=== PATIENT | female | born 1985 | race Caucasian/White ===

== ENCOUNTER 2018-12-21 12:11 | Inpatient (IN) | payer OTHER ==
[~2018-12-21] VITALS: Ht 157.5 cm; Wt 79.4 kg
[2018-12-21 12:00] VITALS: BP 98/58
--- NOTE | 2018-12-21 13:10 | NUR ---
33 year old FEMALE admitted to room # 405 for stabilization. Reports an addiction to last used hours prior to admission. Compliant with admission procedure. See assessment forms for additional information about patient status.
[2018-12-21] MEDS ORDERED: TRAZODONE100 MG PO (13:31)
[2018-12-21] MEDS ORDERED: ZANTAC 300300 MG PO (13:31)
[2018-12-21] MEDS ORDERED: METHADONE H5 MG/5 ML PO (13:32)
--- NOTE | 2018-12-21 14:38 | NUR ---
PATIENT MEETS [facility], CINA=16. PATIENT IS INTERESTED IN OUTPATIENT COUNSELING. [facility] WILL SCHEDULE THE PATIENT'S INITIAL APPOINTMENT. BRANT FONG MS SLICING MACHINE OPERATOR
[2018-12-21 15:49] LABS: BILIRUBIN NEGATIVE (NEGATIVE); BLOOD TRACE-INTACT (NEGATIVE); CLARITY CLEAR (CLEAR); COLOR YELLOW (YELLOW); GLUCOSE NEGATIVE (NEGATIVE); KETONE NEGATIVE (NEGATIVE); LEUKO ESTERASE NEGATIVE (NEGATIVE); NITRITE NEGATIVE (NEGATIVE); UROBILINOGEN 0.2 E.U./dl (0.2-1.0)
[2018-12-21 15:59] LABS: BACTERIA 1+; MUCOUS 1+; URINE AMPHETAMINES < 1000 (1000ng/ml); URINE BARBITURATES < 200 (200ng/ml); URINE BENZODIAZEPINES < 200 (200ng/ml); URINE CANNABINOIDS (THC) > 50 (50ng/ml); URINE COCAINE < 300 (300ng/ml); URINE METHADONE < 300 (300ng/ml); URINE OPIATES < 300 (300ng/ml); WBC 0-2 wbc/hpf (0-5)
[2018-12-21 16:00] VITALS: BP 91/51
[2018-12-21 16:04] LABS: BASO % 0.2 % (0.0-1.0); EOS % 0.4 % (1.0-4.0); HEMATOCRIT 37.4 % (37.0-47.0); HEMOGLOBIN 12.2 g/dl (12.0-16.0); LYMPH # 1.5 10*3/uL (1.3-4.4); LYMPH % 27.9 % (27.0-41.0); MEAN CELL VOLUME 88.8 fl (81.0-99.0); MEAN CORPUSCULAR HGB CONC 32.6 g/dl (33.0-37.0); MEAN PLATELET VOLUME 9.9 fl (9.6-12.3); MONO # 0.2 10*3/uL (0.1-1.0); MONO % 4.4 % (3.0-9.0); NEUT # 3.7 10*3/uL (2.3-7.9); NEUT % 66.9 % (47.0-73.0); PLATELET COUNT AUTOMATED 205 10*3/uL (130-400); RED BLOOD COUNT 4.21 10*6/uL (4.10-5.10); RED CELL DISTRI WIDTH 13.3 % (0-14.5); WHITE BLOOD COUNT 5.5 10*3/uL (4.8-10.8)
[2018-12-21 16:06] LABS: URINE PHENCYCLIDINE < 25 (25ng/ml)
[2018-12-21 16:22] LABS: INTERNATIONAL NORM RATIO 1.1 (2.0-3.5)
[2018-12-21 16:30] LABS: ALBUMIN 3.6 gm/dl (3.1-4.5); ALKALINE PHOSPHATASE 66 U/L (45-117); BUN 15 mg/dl (7-24); CHLORIDE 105 mmol/L (98-107); CREATININE 0.66 mg/dL (0.55-1.02); POTASSIUM 3.8 mmol/L (3.5-5.1); SGOT/AST 25 IU/L (3-35); SGPT/ALT 71 U/L (12-78); SODIUM 137 mmol/L (136-145); TOTAL PROTEIN 7.6 gm/dL (6.4-8.2)
[2018-12-21 16:31] LABS: ETHYL ALCOHOL < 3.0 mg/dl (<3)
[2018-12-21 16:34] LABS: BETA-HCG, QUANT < 1.0 mIU/mL (1-3)
--- NOTE | 2018-12-21 16:42 | NUR ---
PT REQUESTED AND GIVEN ROBAXIN FOR MUSCLE ACHES AND VISTARIL FOR ANXIETY WILL MONITOR
--- NOTE | 2018-12-21 18:11 | NUR ---
PT STATES THAT ROBAXIN AND VISTARIL HELPED WILL MONITOR
[2018-12-21 20:00] VITALS: BP 91/48
--- NOTE | 2018-12-21 21:52 | NUR ---
PATIENT EXHIBITING SIGNS OF RESTLESSNESS. REQUIP ADMINISTERED PRESCRIBED. WILL MONITOR FOR EFFECTIVENESS.
--- NOTE | 2018-12-21 22:52 | NUR ---
PATIENT RESTING WITH EYES CLOSED AT THIS TIME. NO DISTRESS NOTED. CALL RICE WITHIN REACH. WILL CONTINUE TO MONITOR.
[2018-12-22] VITALS: BP 98/56
--- NOTE | 2018-12-22 02:33 | NUR ---
24 HR chart check completed.
--- NOTE | 2018-12-22 03:05 | NUR ---
PATIENT RESTING WITH EYES CLOSED AT THIS TIME. RESPIRATIONS EASY. NO DISTRESS NOTED. CALL RICE WITHIN REACH. WILL MONITOR.
--- NOTE | 2018-12-22 06:00 | NUR ---
PATIENT MEDICATED FOR ANXIETY AND MUSCLE ACHES. VISTARIL AND ROBAXON ADMINISTERED PRESCRIBED. WILL MONITOR FOR EFFECTIVENESS.
[2018-12-22 08:00] VITALS: BP 112/63
--- NOTE | 2018-12-22 08:26 | NUR ---
pt requested and given motrin for c/o back pain will monitor
--- NOTE | 2018-12-22 10:11 | NUR ---
MOTRIN EFFECTIVE. WILL MONITOR
[2018-12-22 12:00] VITALS: BP 107/54
--- NOTE | 2018-12-22 15:36 | NUR ---
PT MEDICATED WITH VISTARIL FOR ANXIETY, ROBAXIN FOR MUSCLE ACHES AND ZOFRAN FOR NAUSEA. WILL MONITOR
[2018-12-22 16:00] VITALS: BP 110/49
--- NOTE | 2018-12-22 17:16 | NUR ---
VISTARIL, ROBAXIN AND ZOFRAN APPEAR EFFECTIVE. WILL MONITOR
[2018-12-22 20:00] VITALS: BP 108/53
--- NOTE | 2018-12-22 20:46 | NUR ---
PATIENT STATES SHE IS COMFORTABLE AT THIS TIME AND NO NEEDS VOICED.
--- NOTE | 2018-12-22 22:44 | NUR ---
24 HR chart check completed.
[2018-12-23] VITALS: BP 95/45
--- NOTE | 2018-12-23 00:02 | NUR ---
PATIENT MEDICATED FOR WITHDRAWL SYMPTOMS. ROBAXIN, VISTARIL, REQUIP ADMINISTRED PRESCRIBED. WILL MONITOR FOR EFFECTIVENESS.
--- NOTE | 2018-12-23 00:53 | NUR ---
PATIENT RESTING WITH EYES CLOSED AT THIS TIME. RESPIRATIONS EASY AND UNLABORED. CALL RICE WITHIN REACH. WILL MONITOR.
[2018-12-23 08:00] VITALS: BP 102/58
--- NOTE | 2018-12-23 08:01 | NUR ---
Patient displaying withdrawal symptoms, including: irritability, anxiousness, restlessness and agitation, complicated by impulsive behavior. Patient scores a 5 on the withdrawal scale. Scheduled/PRN medications provided, doctor notified of patient's agitation and AMA potential. Will continue to monitor medication effectiveness.
--- NOTE | 2018-12-23 09:30 | NUR ---
Patient resting. Responding to scheduled medications with fewer complaints of pain and anxiety.
--- NOTE | 2018-12-23 11:04 | NUR ---
PATIENT IS GOING TO FOLLOW UP WITH [facility] FOR HER AFTERCARE PLAN. PR STAFF WILL FOLLOW UP WITH PATIENT WITH HER APPOINTMENT. YOLI WRAY B.A. SUPERINTENDENT METER TESTS
[2018-12-23 12:00] VITALS: BP 103/60
[2018-12-23 16:00] VITALS: BP 111/58
--- NOTE | 2018-12-23 17:34 | NUR ---
PT REQUESTED AND RECEIVED PO VISTARIL, ROBAXIN AND MOTRIN PER PRN ORDER FOR C/O ANXIETY AND MUSCLE ACHES/DISCOMFORT. WILL MONITOR EFFECTIVENESS.
[2018-12-23 20:00] VITALS: BP 107/47
[2018-12-24] VITALS: BP 114/61
[2018-12-24 06:29] LABS: BASO % 0.2 % (0.0-1.0); EOS # 0.1 10*3/uL (0.0-0.4); EOS % 2.2 % (1.0-4.0); HEMATOCRIT 38.6 % (37.0-47.0); HEMOGLOBIN 12.6 g/dl (12.0-16.0); LYMPH # 2.1 10*3/uL (1.3-4.4); LYMPH % 38.3 % (27.0-41.0); MEAN CELL VOLUME 89.6 fl (81.0-99.0); MEAN CORPUSCULAR HGB 29.2 pg (27.0-31.0); MEAN CORPUSCULAR HGB CONC 32.6 g/dl (33.0-37.0); MEAN PLATELET VOLUME 9.9 fl (9.6-12.3); MONO # 0.4 10*3/uL (0.1-1.0); MONO % 7.4 % (3.0-9.0); NEUT # 2.8 10*3/uL (2.3-7.9); NEUT % 51.5 % (47.0-73.0); PLATELET COUNT AUTOMATED 186 10*3/uL (130-400); RED BLOOD COUNT 4.31 10*6/uL (4.10-5.10); RED CELL DISTRI WIDTH 13.2 % (0-14.5); WHITE BLOOD COUNT 5.4 10*3/uL (4.8-10.8)
[2018-12-24 06:55] LABS: CREATININE 0.66 mg/dL (0.55-1.02)
[2018-12-24 08:00] VITALS: BP 109/54
[2018-12-24] MEDS ORDERED: METHOCARBAMOL750 M1 PO (08:37)
--- NOTE | 2018-12-24 10:10 | NUR ---
Discharge instructions reviewed with patient/family. Patient receptive and verbalizes understanding. Follow-up care arranged. Written instructions given to patient/family. JE JOYNER.
== END 2018-12-24 10:10 | disposition home or self-care (01) | DRG 897 ==
LOC: 4E 12:11
PROVIDERS: Internal Medicine; ADMIT Emergency Medicine
DX: F11.20 Opioid dependence, uncomplicated (principal); F17.200 Nicotine dependence, unspecified, uncomplicated; M79.10 Myalgia, unspecified site; Z71.6 Tobacco abuse counseling; K21.9 Gastro-esophageal reflux disease without esophagitis; F41.9 Anxiety disorder, unspecified; F60.3 Borderline personality disorder; F32.9 Major depressive disorder, single episode, unspecified; Z98.891 History of uterine scar from previous surgery; Z79.899 Other long term (current) drug therapy